=== PATIENT | male | born 1960 | race Caucasian/White ===

== ENCOUNTER 2016-11-19 06:06 | Emergency (ER) | payer OTHER ==
[2016-11-19] MEDS ORDERED: DIPHENHYDRAMINE HCL 50 MG/ML VIAL IV ONE (07:54)
[2016-11-19] MEDS ORDERED: NORMAL SALINE 1000 ML 1,000 ML IV ONE (07:54)
[2016-11-19] MEDS ORDERED: KETOROLAC TROMETHAMINE INJ/PF 30 MG/1 ML SDV IV ONE (07:54)
--- NOTE | 2016-11-19 07:55 | ER Document Report ---
ED GI/ - General Chief Complaint: Flank Pain Stated Complaint: FLANK PAIN Time Seen by Provider: 11/19/16 07:35 Mode of Arrival: Ambulatory Information source: Patient Notes: Pt is a 56 year old male who presents to the ER today for possible kidney stone. Pt has a history of stones and states that he has been having right sided flank pain radiating around to the right abdomen with hematuria. He states he started to feel some pain 2 days ago, but it worsened today. He has a urologist in town that he goes to and states he can get an appointment easily. TRAVEL OUTSIDE OF THE [place] IN LAST 30 DAYS: No - Related Data Allergies/Adverse Reactions: No Known Allergies Allergy (Verified 09/11/14 09:40) Past Medical History - General Information source: Patient - Social History Smoking Status: Unknown if Ever Smoked Family History: Reviewed & Not Pertinent, DM Patient has suicidal ideation: No Patient has homicidal ideation: No Renal/ Medical History: Reports: Hx Kidney Stones. Denies: Hx Peritoneal Dialysis Review of Systems - Review of Systems Constitutional: No symptoms reported EENT: No symptoms reported Cardiovascular: No symptoms reported Respiratory: No symptoms reported Gastrointestinal: No symptoms reported Genitourinary: See HPI Male Genitourinary: No symptoms reported Musculoskeletal: No symptoms reported Skin: No symptoms reported Hematologic/Lymphatic: No symptoms reported Neurological/Psychological: No symptoms reported Physical Exam - Vital signs Vitals: Temp Pulse Resp BP Pulse Ox 97.4 F 60 18 136/74 H 100 11/19/16 06:28 11/19/16 06:28 11/19/16 06:28 11/19/16 06:28 11/19/16 06:28 - Notes Notes: PHYSICAL EXAMINATION: GENERAL: Uncomfortable appearing, but in no acute distress. HEAD: Atraumatic, normocephalic. EYES: Pupils equal round and reactive to light, extraocular movements intact, sclera anicteric, conjunctiva are normal. NECK: Normal range of motion, supple without lymphadenopathy LUNGS: CTAB and equal. No wheezes rales or rhonchi. HEART: Regular rate and rhythm without murmurs ABDOMEN: Soft, no tenderness. No guarding, no rebound BACK: no vertebral tenderness, normal ROM GI/: right CVA tenderness EXTREMITIES: Normal range of motion, no pitting edema. No cyanosis. NEUROLOGICAL: Cranial nerves grossly intact. Normal sensory/motor exams. PSYCH: Normal mood, normal affect. SKIN: Warm, Dry, normal turgor, no rashes or lesions noted Course - Re-evaluation Re-evalutation: 11/19/16 15:17 Pt has a 12mm stone in the right ureter at the level of the UVJ, he is having no difficulty urinating, I did offer to transfer him for urology as we have no one exceptional children's teacher for urology here, but he states he can get in easily with his urologist and would like to go home with medicine and call today to get in with them. I agree with this plan and advise him that if he can't, he should come back as he likely will not pass this stone on his own. - Vital Signs Vital signs: Temp Pulse Resp BP Pulse Ox 98.6 F 51 L 18 131/76 H 100 11/19/16 10:38 11/19/16 10:38 11/19/16 10:38 11/19/16 10:38 11/19/16 10:38 - Laboratory Result Diagrams: 11/19/16 08:07 11/19/16 08:07 Laboratory results interpreted by me: 11/19/16 08:38 Urine Blood LARGE H Ur Leukocyte Esterase TRACE H Discharge - Discharge Clinical Impression: Ureteral stone Condition: Stable Disposition: HOME, SELF-CARE Additional Instructions: Return immediately for any new or worsening symptoms. Follow up with urologist, call tomorrow to make followup appointment. Prescriptions: Ondansetron [Zofran Odt 4 mg Tablet] 4 mg PO Q4HP PRN #30 tab.rapdis PRN Reason: Ketorolac Tromethamine [Toradol 10 mg Tablet] 10 mg PO Q6HP PRN #30 tablet PRN Reason: Ciprofloxacin HCl [Cipro 500 mg Tablet] 500 mg PO BID #20 tablet Oxycodone HCl/Acetaminophen [Percocet 5-325 mg Tablet] 1 tab PO Q4 #20 tab Tamsulosin HCl [Flomax 0.4 mg Cap.sr] 0.4 mg PO DAILY #20 cap.sr.24h
[2016-11-19 08:20] LABS: ABSOLUTE BASOPHILS # (AUTO) 0.1 10^3/uL (0.0-0.2); ABSOLUTE EOSINOPHILS # (AUTO) 0.3 10^3/uL (0.0-0.6); ABSOLUTE LYMPHOCYTES (AUTO) 2.5 10^3/uL (0.5-4.7); ABSOLUTE MONOCYTES (AUTO) 0.8 10^3/uL (0.1-1.4); ABSOLUTE NEUT (AUTO) 6.7 10^3/uL (1.7-8.2); BASOPHILS % (AUTO) 0.6 % (0-2); EOSINOPHILS % (AUTO) 3.1 % (0-6); HEMATOCRIT 46.4 % (37.9-51.0); HEMOGLOBIN 15.5 g/dL (13.5-17.0); HGB HCT DIFFERENCE 0.1; MEAN CORPUSCULAR HGB CONC 33.4 g/dL (32.0-36.0); MEAN CORPUSCULAR VOLUME 93 fl (80-97); MONOCYTES % (AUTO) 7.8 % (3-13); RED CELL DISTRIBUTION WIDTH 13.9 % (11.5-14.0); SEGMENTED NEUTROPHILS % (AUTO) 64.5 % (42-78); WHITE BLOOD COUNT 10.3 10^3/uL (4.0-10.5)
--- NOTE | 2016-11-19 08:24 | RADIOLOGY REPORT (SQ) ---
EXAM DESCRIPTION: CT LTD RENAL STONE PROTOCOL ON COMPLETED DATE/TIME: 11/19/2016 8:03 am REASON FOR STUDY: flank pain COMPARISON: 02/22/2016 TECHNIQUE: CT scan of the abdomen and pelvis performed without intravenous or oral contrast. Images reviewed with lung, soft tissue, and bone windows. Reconstructed coronal and sagittal MPR images revi ewed. All images stored on PACS. All CT scanners at this facility use dose modulation, iterative reconstruction, and/or weight based d osing when appropriate to reduce radiation dose to as low as reasonably achievable (ALARA). [facility]: Dose Right [facility]: CareDose [facility]: Dose Right [facility]: Teradose 4D [facility]: Smart DCMobility RADIATION DOSE: Up-to-date CT equipment and radiation dose reduction techniques were employed. CTDIv ol: 5.0 mGy. DLP: 250 mGy-cm.mGy. LIMITATIONS: None. FINDINGS: LOWER CHEST: No significant findings. No nodules or infiltrates. NON-CONTRASTED LIVER, SPLEEN, ADRENALS: Evaluation limited by lack of IV contrast. No identified sign ificant masses. PANCREAS: No masses. No peripancreatic inflammatory changes. GALLBLADDER: No identified stones by CT criteria. No inflammatory changes to suggest cholecystitis. RIGHT KIDNEY AND URETER: No suspicious masses. Assessment limited by lack of IV contrast. Multiple small nonobstructing stones in the kidney largest measuring 6 mm. 12 by 7 mm right UPJ stone with m ild obstructive changes. Stone measures 1,100 Hounsfield units. LEFT KIDNEY AND URETER: No suspicious masses. Assessment limited by lack of IV contrast. Multiple n onobstructing stones in the kidneys largest measuring 7 mm. No hydronephrosis or hydroureter. AORTA AND RETROPERITONEUM: No aneurysm. No retroperitoneal masses or adenopathy. BOWEL AND PERITONEAL CAVITY: No obvious masses or inflammatory changes. No free fluid. APPENDIX: Normal. PELVIS, BLADDER, AND ABDOMINAL WALL:No abnormal masses. No free fluid. Bladder normal. Prostate is m ildly enlarged and prostatic calcifications are seen. BONES: No significant findings. OTHER: No other significant finding. IMPRESSION: 1. 12 mm right UPJ stone with mild obstructive changes. 2. Bilateral nephrolithiasis. TECHNICAL DOCUMENTATION: JOB ID: [id number] Quality ID # [id number]: Final reports with documentation of one or more dose reduction techniques (e.g., Au tomated exposure control, adjustment of the mA and/or kV according to patient size, use of iterative reconstruction technique) 2010 [employer]- All Rights Reserved
[2016-11-19] MEDS ORDERED: TAMSULOSIN HCL 0.4 MG CAP.SR.24H PO ONE (08:33)
[2016-11-19 08:36] LABS: ANION GAP 10 (5-19); BLOOD UREA NITROGEN 18 mg/dL (7-20); CALCIUM 9.5 mg/dL (8.4-10.2); CARBON DIOXIDE 26 mmol/L (22-30); CHLORIDE 106 mmol/L (98-107); CREATININE RESULT 0.85 mg/dL (0.52-1.25); GLUCOSE 90 mg/dL (75-110); POTASSIUM 4.6 mmol/L (3.6-5.0); SODIUM 142.2 mmol/L (137-145)
[2016-11-19 08:51] LABS: APPEARANCE,URINE SLIGHTLY-CLOUDY; BILIRUBIN,URINE NEGATIVE (NEGATIVE); GLUCOSE, URINE NEGATIVE (NEGATIVE); KETONES,URINE NEGATIVE (NEGATIVE); LEUKOCYTE ESTERASE,URINE TRACE (NEGATIVE); NITRITE,URINE NEGATIVE (NEGATIVE); PROTEIN,URINE NEGATIVE (NEGATIVE); URINE SPECIFIC GRAVITY 1.011; UROBILINOGEN,URINE NEGATIVE mg/dL (<2.0)
[2016-11-19 10:46] VITALS: BP 131/76
== END 2016-11-19 10:38 | disposition home or self-care (01) ==
LOC: ER 06:06
DX: N20.1 Calculus of ureter (principal); R10.9 Unspecified abdominal pain; Z87.442 Personal history of urinary calculi
CPT/HCPCS: 99284; 96361; 96374; 96375; 36415; 85025; 80048; 81001; 76380; J1200; J1885; J7030

== ENCOUNTER 2016-12-15 04:53 | Emergency (ER) | payer OTHER ==
[2016-12-15 05:22] LABS: ABSOLUTE BASOPHILS # (AUTO) 0.1 10^3/uL (0.0-0.2); ABSOLUTE EOSINOPHILS # (AUTO) 0.4 10^3/uL (0.0-0.6); ABSOLUTE LYMPHOCYTES (AUTO) 2.4 10^3/uL (0.5-4.7); ABSOLUTE MONOCYTES (AUTO) 0.7 10^3/uL (0.1-1.4); ABSOLUTE NEUT (AUTO) 7.1 10^3/uL (1.7-8.2); BASOPHILS % (AUTO) 0.6 % (0-2); EOSINOPHILS % (AUTO) 3.5 % (0-6); HEMATOCRIT 43.5 % (37.9-51.0); HEMOGLOBIN 14.9 g/dL (13.5-17.0); HGB HCT DIFFERENCE 1.2; LYMPHOCYTES % (AUTO) 22.4 % (13-45); MEAN CORPUSCULAR HEMOGLOBIN 31.7 pg (27.0-33.4); MEAN CORPUSCULAR HGB CONC 34.3 g/dL (32.0-36.0); MEAN CORPUSCULAR VOLUME 92 fl (80-97); MONOCYTES % (AUTO) 6.8 % (3-13); RED BLOOD COUNT 4.71 10^6/uL (4.35-5.55); RED CELL DISTRIBUTION WIDTH 13.6 % (11.5-14.0); SEGMENTED NEUTROPHILS % (AUTO) 66.7 % (42-78); WHITE BLOOD COUNT 10.6 10^3/uL (4.0-10.5)
[2016-12-15 05:34] LABS: ALANINE AMINOTRANSFERASE 24 U/L (21-72); ALBUMIN 4.1 g/dL (3.5-5.0); ALKALINE PHOSPHATASE 93 U/L (38-126); ANION GAP 12 (5-19); ASPARTATE AMINO TRANSFERASE 16 U/L (17-59); BILIRUBIN,DIRECT 0.4 mg/dL (0.0-0.4); BILIRUBIN,TOTAL 0.5 mg/dL (0.2-1.3); BLOOD UREA NITROGEN 17 mg/dL (7-20); CALCIUM 9.8 mg/dL (8.4-10.2); CARBON DIOXIDE 24 mmol/L (22-30); CHLORIDE 108 mmol/L (98-107); CREATININE RESULT 0.92 mg/dL (0.52-1.25); GLUCOSE 139 mg/dL (75-110); SODIUM 143.6 mmol/L (137-145); TOTAL PROTEIN 6.9 g/dL (6.3-8.2)
--- NOTE | 2016-12-15 05:34 | RADIOLOGY REPORT (SQ) ---
EXAM DESCRIPTION: ACUTE ABDOMEN SERIES COMPLETED DATE/TIME: 12/15/2016 5:23 am REASON FOR STUDY: abd pain, no BM in 6 days COMPARISON: CT renal system, 11/19/2016. NUMBER OF VIEWS: Three views. 4 images. TECHNIQUE: Frontal chest, supine abdomen and upright/decubitus abdomen radiographic images acquired. LIMITATIONS: None. FINDINGS: CHEST: Mild interstitial markings. Moderate hyperinflation. FREE AIR: None. No abnormal gas collections. BOWEL GAS PATTERN: Nonobstructive pattern. No dilated loops or air fluid levels. CALCIFICATIONS: Left nephrolithiasis measures up to 0.3 cm each. HARDWARE: Right ureteral stent. SOFT TISSUES: No gross mass or suggestion of organomegaly. BONES: No acute fracture. No worrisome bone lesions. OTHER: No other significant finding. IMPRESSION: No acute findings. Left nephrolithiasis. Right ureteral stent. TECHNICAL DOCUMENTATION: JOB ID: [id number] [employer]- All Rights Reserved
[2016-12-15] MEDS ORDERED: KETOROLAC TROMETHAMINE INJ/PF 30 MG/1 ML SDV IV ONE (06:05)
[2016-12-15] MEDS ORDERED: NORMAL SALINE 1000 ML 1,000 ML IV ONE (06:05)
[2016-12-15] MEDS ORDERED: HYDROMORPHONE HCL INJ/PF 2 MG/ML AMPULE IV ONE (06:06)
[2016-12-15] MEDS ORDERED: METOCLOPRAMIDE HCL INJ/PF 10 MG/2 ML SDV IV ONE (06:08)
--- NOTE | 2016-12-15 06:08 | ER Document Report ---
ED General - General Chief Complaint: Abdominal Pain Stated Complaint: ABDOMINAL PAIN Time Seen by Provider: 12/15/16 06:03 TRAVEL OUTSIDE OF THE [place] IN LAST 30 DAYS: No - HPI Patient complains to provider of: Left lower back pain. 10/10 sharp in nature with radiation to his LLQ Severity: Severe Notes: Patient has recent kidney stones has a stent in the left ureter. In the wire in place. Contacted urology recommended evaluation emergency department for profound pain. Patient also endorses some hematuria. Denies fever, chills.. Currently profoundly nauseous with multiple episodes of emesis - Related Data Allergies/Adverse Reactions: No Known Allergies Allergy (Verified 09/11/14 09:40) Past Medical History - Social History Smoking Status: Unknown if Ever Smoked Family History: Reviewed & Not Pertinent, DM Renal/ Medical History: Reports: Hx Kidney Stones. Denies: Hx Peritoneal Dialysis GI Medical History: Reports: Hx Gastroesophageal Reflux Disease Past Surgical History: Reports: Hx Kidney (Renal Surgery) - stent placement - Immunizations Hx Diphtheria, Pertussis, Tetanus Vaccination: Yes Physical Exam - Vital signs Vitals: Temp Pulse Resp BP Pulse Ox 97.6 F 61 19 140/93 H 100 12/15/16 05:19 12/15/16 05:19 12/15/16 05:19 12/15/16 05:19 12/15/16 05:19 Course - Vital Signs Vital signs: Temp Pulse Resp BP Pulse Ox 97.6 F 61 19 140/93 H 100 12/15/16 05:19 12/15/16 05:19 12/15/16 05:19 12/15/16 05:19 12/15/16 05:19 - Laboratory Result Diagrams: 12/15/16 05:05 12/15/16 05:05 Laboratory results interpreted by me: 12/15/16 12/15/16 05:05 05:05 WBC 10.6 H Chloride 108 H Glucose 139 H AST 16 L
--- NOTE | 2016-12-15 06:10 | ER Document Report ---
ED General - General Chief Complaint: Abdominal Pain Stated Complaint: ABDOMINAL PAIN Time Seen by Provider: 12/15/16 06:03 TRAVEL OUTSIDE OF THE [place] IN LAST 30 DAYS: No - HPI Patient complains to provider of: Left lower back pain Onset: This morning Onset/Duration: Gradual Severity: Severe Pain Level: 5 Notes: Fortunately man presents with 10/10 left lower back pain with radiation to his left lower anterior quadrant. Pain is been getting worse and worse. Patient has history of recent kidney surgery and left ureter stent placed. Patient says the pain was worse. Patient has profound nausea and emesis. His pain has been going on for approximately 6 hours - Related Data Allergies/Adverse Reactions: No Known Allergies Allergy (Verified 09/11/14 09:40) Past Medical History - Social History Smoking Status: Unknown if Ever Smoked Family History: Reviewed & Not Pertinent, DM Renal/ Medical History: Reports: Hx Kidney Stones. Denies: Hx Peritoneal Dialysis GI Medical History: Reports: Hx Gastroesophageal Reflux Disease Past Surgical History: Reports: Hx Kidney (Renal Surgery) - stent placement - Immunizations Hx Diphtheria, Pertussis, Tetanus Vaccination: Yes Review of Systems - Review of Systems Constitutional: No symptoms reported EENT: No symptoms reported Cardiovascular: No symptoms reported Respiratory: No symptoms reported Gastrointestinal: No symptoms reported Genitourinary: No symptoms reported Male Genitourinary: No symptoms reported Musculoskeletal: Back pain Skin: No symptoms reported Hematologic/Lymphatic: No symptoms reported Neurological/Psychological: No symptoms reported Physical Exam - Vital signs Vitals: Temp Pulse Resp BP Pulse Ox 97.6 F 61 19 140/93 H 100 12/15/16 05:19 12/15/16 05:19 12/15/16 05:19 12/15/16 05:19 12/15/16 05:19 Interpretation: Normal - General General appearance: Appears well, Alert In distress: Moderate - HEENT Head: Normocephalic, Atraumatic Eyes: Normal Pupils: PERRL - Respiratory Respiratory status: No respiratory distress Chest status: Nontender Breath sounds: Normal Chest palpation: Normal - Cardiovascular Rhythm: Regular Heart sounds: Normal auscultation Murmur: No - Abdominal Inspection: Normal Distension: No distension Bowel sounds: Normal Tenderness: Nontender Organomegaly: No organomegaly - Back Back: Normal, Nontender - Extremities General upper extremity: Normal inspection, Nontender, Normal color, Normal ROM , Normal temperature General lower extremity: Normal inspection, Nontender, Normal color, Normal ROM , Normal temperature, Normal weight bearing. No: Kiya's sign - Neurological Neuro grossly intact: Yes Cognition: Normal Orientation: AAOx4 Maria Coma Scale Eye Opening: Spontaneous [place] Coma Scale Verbal: Oriented [place] Coma Scale Motor: Obeys Commands [place] Coma Scale Total: 15 Speech: Normal Motor strength normal: LUE, RUE, LLE, RLE Sensory: Normal - Psychological Associated symptoms: Normal affect, Normal mood - Skin Skin Temperature: Warm Skin Moisture: Dry Skin Color: Normal Course - Re-evaluation Re-evalutation: 12/15/16 08:22 Patient presents in severe discomfort not sure if it is from chronic constipation or the indwelling left-sided ureteral stent. Patient extensive lab workup relatively unremarkable. Patient has IV established given a load of IV pain medication and oral hydration as well as IV hydration. Antiemetics. Patient also given oral MiraLAX and mag citrate. Patient is a large bowel movement. Given the interventions performed here in large bowel movement patient pain-free. Patient would like to be discharged home with follow-up with his urologist. - Vital Signs Vital signs: Temp Pulse Resp BP Pulse Ox 97.6 F 61 19 140/93 H 100 12/15/16 05:19 12/15/16 05:19 12/15/16 05:19 12/15/16 05:19 12/15/16 05:19 - Laboratory Result Diagrams: 12/15/16 05:05 12/15/16 05:05 Laboratory results interpreted by me: 12/15/16 12/15/16 12/15/16 05:05 05:05 07:19 WBC 10.6 H Chloride 108 H Glucose 139 H AST 16 L Urine Protein 100 H Urine Blood LARGE H Ur Leukocyte Esterase MODERATE H Discharge - Discharge Clinical Impression: Renal colic on left side Constipation Qualifiers: Constipation type: drug induced constipation Qualified Code(s): K59.03 - Drug induced constipation Condition: Stable Disposition: HOME, SELF-CARE Instructions: Oral Narcotic Medication ([facility]), Bulk Laxatives Additional Instructions: f/u with your urologist
--- NOTE | 2016-12-15 07:30 | RADIOLOGY REPORT (SQ) ---
EXAM DESCRIPTION: CT ABD/PELVIS WITH IV ONLY COMPLETED DATE/TIME: 12/15/2016 7:12 am REASON FOR STUDY: abdominal pain COMPARISON: 11/19/2016. CR, 12/15/2016. TECHNIQUE: CT scan of the abdomen and pelvis performed using helical scanning technique with dynamic intravenous contrast injection. No oral contrast. Images reviewed with lung, soft tissue, and bone windows. Reconstructed coronal and sagittal MPR images reviewed. Delayed images for evaluation of the urinary system also acquired. All images stored on PACS. All CT scanners at this facility use dose modulation, iterative reconstruction, and/or weight based d osing when appropriate to reduce radiation dose to as low as reasonably achievable (ALARA). [facility]: Dose Right [facility]: CareDose [facility]: Dose Right [facility]: Teradose 4D [facility]: PowerPractical CONTRAST TYPE AND DOSE: 83.3 CC Isovue 370- low osmolar. RENAL FUNCTION: Creatinine 0.9. RADIATION DOSE: Up-to-date CT equipment and radiation dose reduction techniques were employed. CTDIv ol: 5.6 - 7.2 mGy. DLP: 622 mGy-cm.. LIMITATIONS: None. FINDINGS: LOWER CHEST: No significant findings. No nodules or infiltrates. LIVER: Normal size. No masses. No dilated ducts. Subcentimeter low-attenuation, likely benign left hepatic lesion probably due to cyst or hemangioma. SPLEEN: Normal size. No focal lesions. PANCREAS: No masses. No significant calcifications. No adjacent inflammation or peripancreatic fluid collections. Pancreatic duct not dilated. GALLBLADDER: No identified stones by CT criteria. No inflammatory changes to suggest cholecystitis. ADRENAL GLANDS: No significant masses or asymmetry. RIGHT KIDNEY AND URETER: Right ureteral stent. 0.5 cm stone. No significant hydronephrosis or hydro ureter. subcentimeter likely benign cysts. LEFT KIDNEY AND URETER: Or small nephrolithiasis measuring up to 0.3 cm without complication. AORTA AND VESSELS: No aneurysm. No dissection. Renal arteries, SMA, celiac without stenosis. RETROPERITONEUM: No retroperitoneal adenopathy, hemorrhage or masses. BOWEL AND PERITONEAL CAVITY: No masses or inflammatory changes. No free fluid or peritoneal masses. APPENDIX: No evidence of appendicitis. Possible minimal appendicolith. PELVIS: No mass. No free fluid. Normal bladder. ABDOMINAL WALL: No masses. No hernias. BONES: Mild L5-S1 and lower thoracic disc desiccation. Small fragmented anterior L 3-4 bridging oste ophyte. OTHER: No other significant finding. IMPRESSION: No acute findings. Right ureteral stent. Small bilateral nephrolithiasis. TECHNICAL DOCUMENTATION: JOB ID: [id number] Quality ID # [id number]: Final reports with documentation of one or more dose reduction techniques (e.g., Au tomated exposure control, adjustment of the mA and/or kV according to patient size, use of iterative reconstruction technique) 2010 [employer]- All Rights Reserved
[2016-12-15] MEDS ORDERED: MAGNESIUM CITRATE 296 ML BOTTLE PO ONE (07:39)
[2016-12-15] MEDS ORDERED: POLYETHYLENE GLYCOL 3350 POWDER 17 GM/1 PACKET PO ONE (07:39)
[2016-12-15 07:42] LABS: APPEARANCE,URINE SLIGHTLY-CLOUDY; BILIRUBIN,URINE NEGATIVE (NEGATIVE); GLUCOSE, URINE NEGATIVE (NEGATIVE); KETONES,URINE NEGATIVE (NEGATIVE); LEUKOCYTE ESTERASE,URINE MODERATE (NEGATIVE); NITRITE,URINE NEGATIVE (NEGATIVE); PROTEIN,URINE 100 mg/dL (NEGATIVE); URINE SPECIFIC GRAVITY 1.023; UROBILINOGEN,URINE NEGATIVE mg/dL (<2.0)
[2016-12-15 08:42] VITALS: BP 127/89
== END 2016-12-15 08:42 | disposition home or self-care (01) ==
LOC: ER 04:53
DX: N23 Unspecified renal colic (principal); K59.03 Drug induced constipation; M54.5 Low back pain; R11.2 Nausea with vomiting, unspecified; K21.9 Gastro-esophageal reflux disease without esophagitis; Z87.442 Personal history of urinary calculi
CPT/HCPCS: 96361; 99285; 96374; 96375; 36415; 83690; 85025; 80053; 81001; 74022; 74177; J3490 ×2; J1885; J2765; J1170; J7030

== ENCOUNTER 2018-01-02 14:08 | Emergency (ER) | payer OTHER ==
[2018-01-02 14:14] VITALS: BP 129/80
[2018-01-02] MEDS ORDERED: PENICILLIN V POTASSIUM 500 MG TABLET PO ONE (15:04)
--- NOTE | 2018-01-02 15:08 | ER Document Report ---
ED Oral Problem - General Chief Complaint: Toothache Stated Complaint: TOOTH PAIN Time Seen by Provider: 01/02/18 14:53 Mode of Arrival: Ambulatory Information source: Patient Notes: 57-year-old male presented ED for complaint of dental pain to the right upper jaw. Tooth #3 has a cavity with mild swelling around the tooth. There is no dental abscess noted. Patient has no signs or symptoms of fluid mixing angina. Patient is alert and oriented respirations regular and unlabored speaking in full sentences and walks with a even steady gait. TRAVEL OUTSIDE OF THE [place] IN LAST 30 DAYS: No - HPI Patient complains to provider of: Toothache Onset: Other - His pain started Saturday Onset: Gradual Quality of pain: Achy Severity: Moderate Pain Level: 3 Associated symptoms: Toothache Worsened by: Cold Similar symptoms previously: Yes Recently seen / treated by doctor/dentist: No - Related Data Allergies/Adverse Reactions: No Known Allergies Allergy (Verified 01/02/18 14:10) Past Medical History - General Information source: Patient - Social History Smoking Status: Current Every Day Smoker Cigarette use (# per day): Yes - ppd Chew tobacco use (# tins/day): No Smoking Education Provided: Yes - 4 min Frequency of alcohol use: None Drug Abuse: None Lives with: Alone Family History: Reviewed & Not Pertinent, DM Patient has suicidal ideation: No Patient has homicidal ideation: No - Past Medical History Cardiac Medical History: Reports: None Pulmonary Medical History: Reports: None EENT Medical History: Reports: None Neurological Medical History: Reports: None Endocrine Medical History: Reports: None Renal/ Medical History: Reports: Hx Kidney Stones Malignancy Medical History: Reports None GI Medical History: Reports: Hx Gastroesophageal Reflux Disease Musculoskeletal Medical History: Reports None Skin Medical History: Reports None Psychiatric Medical History: Reports: None Traumatic Medical History: Reports: None Infectious Medical History: Reports: None Past Surgical History: Reports: Hx Kidney (Renal Surgery) - stent placement - Immunizations Immunizations up to date: Yes Hx Diphtheria, Pertussis, Tetanus Vaccination: Yes Review of Systems - Review of Systems Constitutional: No symptoms reported EENT: Mouth swelling, Dental problem Cardiovascular: No symptoms reported Respiratory: No symptoms reported Gastrointestinal: No symptoms reported Genitourinary: No symptoms reported Male Genitourinary: No symptoms reported Musculoskeletal: No symptoms reported Skin: No symptoms reported Hematologic/Lymphatic: No symptoms reported Neurological/Psychological: No symptoms reported -: Yes All other systems reviewed and negative Physical Exam - Vital signs Vitals: Temp Pulse Resp BP Pulse Ox 98.5 F 64 18 129/80 H 98 01/02/18 14:13 01/02/18 14:13 01/02/18 14:13 01/02/18 14:13 01/02/18 14:13 Interpretation: Normal - General General appearance: Appears well, Alert - HEENT Head: Normocephalic, Atraumatic Eyes: Normal Pupils: PERRL Ears: Normal External canal: Normal Tympanic membrane: Normal Sinus: Normal Nasal: Normal Mouth/Lips: Normal Mucous membranes: Normal Teeth diagram: 1 - Dental pain with minimal swelling around the tooth, no signs or symptoms of Jose G angina. No swelling to the face. No enlarged lymph nodes. Pharynx: Normal Neck: Normal - Respiratory Respiratory status: No respiratory distress Chest status: Nontender Breath sounds: Normal Chest palpation: Normal - Cardiovascular Rhythm: Regular Heart sounds: Normal auscultation Murmur: No - Abdominal Inspection: Normal Distension: No distension Bowel sounds: Normal Tenderness: Nontender Organomegaly: No organomegaly - Back Back: Normal, Nontender - Extremities General upper extremity: Normal inspection, Nontender, Normal color, Normal ROM , Normal temperature General lower extremity: Normal inspection, Nontender, Normal color, Normal ROM , Normal temperature, Normal weight bearing. No: Kiya's sign - Neurological Neuro grossly intact: Yes Cognition: Normal Orientation: AAOx4 [place] Coma Scale Eye Opening: Spontaneous Maria Coma Scale Verbal: Oriented Maria Coma Scale Motor: Obeys Commands Maria Coma Scale Total: 15 Speech: Normal Motor strength normal: LUE, RUE, LLE, RLE Sensory: Normal - Psychological Associated symptoms: Normal affect, Normal mood - Skin Skin Temperature: Warm Skin Moisture: Dry Skin Color: Normal Course - Re-evaluation Re-evalutation: 01/02/18 15:20 Patient was treated with Penicillin VK. He stated he did not want any kind of pain medicine. He denied need for Tylenol and Motrin. States he has those at home. Presentation is most consistent with likely an infected tooth. Airway is patent. Vitals within normal limits. Patient is able swallow without any difficulty. There is no significant facial swelling. No evidence of Jose G angina, apical abscess, or airway obstruction. Patient will be started on antibiotics. I've instructed to follow-up with dentistry as earliest ability for definitive management. At this time will discharge with return precautions and follow-up recommendations. Verbal discharge instructions given a the bedside and opportunity for questions given. Medication warnings reviewed. Patient is in agreement with this plan and has verbalized understanding of return precautions and the need for primary care follow-up in the next 24-72 hours. - Vital Signs Vital signs: Temp Pulse Resp BP Pulse Ox 98.5 F 64 18 129/80 H 98 01/02/18 14:13 01/02/18 14:13 01/02/18 14:13 01/02/18 14:13 01/02/18 14:13 Discharge - Discharge Clinical Impression: Pain due to dental caries Condition: Stable Disposition: HOME, SELF-CARE Additional Instructions: TOOTHACHE: Your pain is due to dental decay. The tooth must be repaired in order for you to feel better. You will, therefore, be referred to a dentist. We do not have dentists on the staff at [facility]. Severe swelling or drainage around a tooth usually means a dental abscess. This also requires evaluation and treatment by the dentist, but antibiotics may be prescribed while awaiting dental treatment. You should be rechecked immediately if you develop major swelling of the face, increasing pain, a lump in the jaw or gums, headache, difficulty swallowing, or fever. PENICILLIN V K: You have been given a prescription for Penicillin VK. Your physician has determined that this is the best antibiotic for your condition. Pen VK can be taken with meals, however more of the antibiotic gets into the bloodstream if it's taken on an empty stomach. Penicillin usually has no side effects. However, allergy to penicillins is common. If you have had an allergic reaction to any drug of the penicillin family, you should never take any other penicillin. Notify your doctor at once if you develop hives, itching, swelling, faintness, or shortness of breath. FOLLOW-UP CARE: You have been referred for follow-up care to the dentists listed below. Call the dentists office for an appointment as you were instructed or within the next two days. If you experience worsening or a significant change in your symptoms, notify the physician immediately or return to the Emergency Department at any time for re-evaluation. [facility] [address] [place], [place] [facility] [address] [place] [address] [facility] [address] [facility] [address] [place] [facility] [address] [email or web address] [address] [place] [address] Saturday- 8:00am to 5:00 pm Will see patients from other [facility]. Charges based on income and family size and accepts Medicare, Medicaid, and Insurances Will pull molars [facility] [address] Hours of Operation 8:00 am - 4:30 pm weekdays The following dental offices accept Medicaid: [facility] Dr. Da Silva Dr. Jean Dr. Mancuso Dr. Han Mansoor Mendes L[place], and [facility] Dr. Sanchez ([place]) Dr. Catalan ([place]) [facility] Drs. Pavon and Nathaniel ([place]) Dr. Ferrell ([place]) [facility] Dr. Wilson ([place]) Drs. Cardenas and ([place]) Medicaid Care Line Prescriptions: Penicillin V Potassium [Penicillin Vk 500 mg Tablet] 500 mg PO BID #20 tablet Forms: Elevated Blood Pressure, Smoking Cessation Education, Return to Work
== END 2018-01-02 15:28 | disposition home or self-care (01) ==
LOC: ER 14:08
DX: K02.9 Dental caries, unspecified (principal); K08.89 Other specified disorders of teeth and supporting structures; F17.210 Nicotine dependence, cigarettes, uncomplicated; Z71.6 Tobacco abuse counseling
CPT/HCPCS: 99282; 99406

== ENCOUNTER 2018-01-09 10:09 | Emergency (ER) | payer OTHER ==
[2018-01-09 10:17] VITALS: BP 137/82
[2018-01-09] MEDS ORDERED: DEXAMETHASONE SOD PHOS INJ 10 MG/1 ML VIAL IM ONE (10:59)
[2018-01-09] MEDS ORDERED: FAMOTIDINE 20 MG TABLET PO ONE (10:59)
[2018-01-09] MEDS ORDERED: KETOROLAC TROMETHAMINE INJ/PF 30 MG/1 ML SDV IM ONE (10:59)
--- NOTE | 2018-01-09 11:05 | ER Document Report ---
ED Allergic Reaction - General Chief Complaint: Allergic Reaction Stated Complaint: POSSIBLE ALLERGIC REACTION Time Seen by Provider: 01/09/18 10:59 Mode of Arrival: Ambulatory Information source: Patient Notes: 57-year-old male presents to ED for complaint of pain and swelling to the right hand going up the arm almost past the elbow. He states he got stung by 4 or 5 wasp yesterday and the swelling has steadily gone up his arm. Patient states he has never had this kind of a reaction to bee stings before. 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 Patient is alert and oriented respirations regular and unlabored no complaint of shortness of breath. TRAVEL OUTSIDE OF THE [place] IN LAST 30 DAYS: No - HPI Onset: Yesterday Onset/Duration: Gradual, Worse Quality of pain: Burning, Pressure Severity: Mild Pain Level: 1 Identified cause: Yes Skin rash / itching: Extremities - Right hand and arm, "Redness" Swelling: Hands - Hand and arm Associated symptoms: None Similar symptoms previously: No Recently seen / treated by doctor: No - Related Data Allergies/Adverse Reactions: No Known Allergies Allergy (Verified 01/09/18 10:10) Past Medical History - General Information source: Patient - Social History Smoking Status: Current Every Day Smoker Cigarette use (# per day): Yes - 17 a day Chew tobacco use (# tins/day): No Smoking Education Provided: Yes - 4 minutes Frequency of alcohol use: None Drug Abuse: None Occupation: Coding File Clerk Lives with: Family Family History: Reviewed & Not Pertinent, DM Patient has suicidal ideation: No Patient has homicidal ideation: No Pulmonary Medical History: Reports: None EENT Medical History: Reports: None Endocrine Medical History: Reports: None Renal/ Medical History: Reports: Hx Kidney Stones Malignancy Medical History: Reports None GI Medical History: Reports: Hx Gastroesophageal Reflux Disease Musculoskeletal Medical History: Reports None Skin Medical History: Reports None Psychiatric Medical History: Reports: None Traumatic Medical History: Reports: None Infectious Medical History: Reports: None Past Surgical History: Reports: Hx Kidney (Renal Surgery) - stent placement - Immunizations Immunizations up to date: Yes Hx Diphtheria, Pertussis, Tetanus Vaccination: Yes Review of Systems - Review of Systems Constitutional: No symptoms reported EENT: No symptoms reported Cardiovascular: No symptoms reported Respiratory: No symptoms reported Gastrointestinal: No symptoms reported Genitourinary: No symptoms reported Male Genitourinary: No symptoms reported Musculoskeletal: No symptoms reported Skin: Change in color - Red and swelling up to the elbow Hematologic/Lymphatic: No symptoms reported Neurological/Psychological: No symptoms reported -: Yes All other systems reviewed and negative Physical Exam - Vital signs Vitals: Temp Pulse Resp BP Pulse Ox 97.5 F 63 16 137/82 H 100 01/09/18 10:16 01/09/18 10:16 01/09/18 10:16 01/09/18 10:16 01/09/18 10:16 Interpretation: Normal - General General appearance: Appears well, Alert - HEENT Head: Normocephalic, Atraumatic Eyes: Normal Pupils: PERRL - Respiratory Respiratory status: No respiratory distress Chest status: Nontender Breath sounds: Normal Chest palpation: Normal - Cardiovascular Rhythm: Regular Heart sounds: Normal auscultation Murmur: No - Abdominal Inspection: Normal Distension: No distension Bowel sounds: Normal Tenderness: Nontender Organomegaly: No organomegaly - Back Back: Normal, Nontender - Extremities General upper extremity: Normal inspection, Nontender, Normal color, Normal ROM , Normal temperature General lower extremity: Normal inspection, Nontender, Normal color, Normal ROM , Normal temperature, Normal weight bearing. No: Kiya's sign - Neurological Neuro grossly intact: Yes Cognition: Normal Orientation: AAOx4 [place] Coma Scale Eye Opening: Spontaneous Maria Coma Scale Verbal: Oriented Maria Coma Scale Motor: Obeys Commands Maria Coma Scale Total: 15 Speech: Normal Motor strength normal: LUE, RUE, LLE, RLE Sensory: Normal - Psychological Associated symptoms: Normal affect, Normal mood - Skin Skin Temperature: Warm Skin Moisture: Dry Skin Color: Normal Character of irregularity: Erythematous Irregularity with: Swelling, Tenderness - Due to 4 or 5 bee stings yesterday Course - Re-evaluation Re-evalutation: 01/09/18 11:08 Patient treated with Decadron IM, Toradol IM, and Pepcid p.o. in the emergency room and discharged home with prescription for prednisone and Pepcid. - Vital Signs Vital signs: Temp Pulse Resp BP Pulse Ox 97.5 F 63 16 137/82 H 100 01/09/18 10:16 01/09/18 10:16 01/09/18 10:16 01/09/18 10:16 01/09/18 10:16 Discharge - Discharge Clinical Impression: Wasp sting Qualifiers: Encounter type: initial encounter Injury intent: accidental or unintentional Qualified Code(s): T63.461A - Toxic effect of venom of wasps, accidental ( unintentional), initial encounter Condition: Stable Disposition: HOME, SELF-CARE Instructions: Family Physicians / Practices Additional Instructions: Insect Sting You've been stung by an insect. The venom can cause pain, redness, and swelling. Right after the sting, we sometimes use adrenaline to reduce the reaction to the venom. This also stops any allergic reaction. You should apply cold compresses, rest and elevate the affected part, and take antihistamines. A more severe, itchy red swelling sometimes develops the next day. This is a local allergic reaction to the venom. This local allergy isn't dangerous. We treat it with cortisone-type medicine and antihistamines. Sometimes we use antibiotics if we're worried about infection. If you develop a fever, chills, a red streak, or swollen glands in the area of the bite, infection may be starting. Return at once. Insect stings from the bee and hornet family may cause a severe allergic reaction. Symptoms include hoarseness, shortness of breath, general redness of the skin, general itching, or lightheadedness. If any of these symptoms occur, you'll be treated with adrenalin and cortisone-like steroids. You should carry an "Anaphylaxis Kit" with you in the summer months so you can administer these medications to yourself before getting emergency medical care. STEROID MEDICATION: You have been given a medicine of the cortisone/steroid class. This medication is used to control inflammation or allergy. It is usually only given for a short period of time, until the acute process subsides. There are usually no side effects from short-term use of cortisone-like medications. Some persons feel an increased sense of well-being and are not sleepy at bedtime. Long-term use of cortisone medications is best avoided, unless required for a severe condition. If your condition does not remit, or relapses after the course of corticosteroid medication, you should consult your physician. ACID-SUPPRESSING MEDICATION: You have a prescription for medicine which reduces the stomach's secretion of acid. Examples include Zantac, Tagament, and Pepcid. These drugs are often used to allow healing of ulcers or esophagitis. They may be needed to prevent recurrence of ulcers in some patients, or to prevent damage from acid reflux in the esophagus. Take all medication as prescribed, even after the pain is gone. Regular antacids may be added as needed if you have symptoms while taking this medicine. These medications sometimes are prescribed for allergic reactions because they have anti-histaminic effects and relieve the rash and itching of the reaction. There are usually no side effects from this medication. But, in rare cases and particularly in the elderly, serious problems can occur. Contact your doctor if there is fever, rash, hallucinations, confusion, or unusual bruising. Contact your doctor at once if you develop lightheadedness, black or bloody stool, or bloody vomitus. ANTIHISTAMINES: An antihistamine has been given and/or prescribed to control your symptoms. Antihistamines are used for many reasons, including itching, watering eyes, runny nose, allergic swelling, hives, and insect stings. Antihistamines may cause drowsiness, especially with the first dose. Do not operate machinery or drive while under the effects of the medication. Other common side effects include dry mouth and eyes. In older persons, antihistamines can occasionally cause urinary retention, constipation, and trouble focusing the eyes. Do not combine the medication with alcohol, or with any other medication without talking to your doctor. USE OF DIPHENHYDRAMINE: The use of diphenhydramine (Benadryl) has been recommended to control allergic symptoms. The 25 mg strength is available over- the-counter, as well as the elixir. This antihistamine is used for many symptoms. It's useful for itching, watering eyes and nose, allergic swelling, hives, and insect stings. The medication can be repeated four times daily. Age Elixir (12.5 mg/tsp) 25 mg pill 2-3 yr 1/2 tsp 4-8 yr 1 tsp 9-14 yr 2 tsp one tab adult 1-2 tabs Antihistamines may cause drowsiness, especially with the first dose. Do not operate machinery or drive while under the effects of the medication. Do not combine the medication with alcohol, or with any other medication without talking to your doctor. Ice & Elevation Apply ice packs frequently against the painful area. Many different schedules are recommended, such as "20 minutes on, 20 minutes off" or "one hour ice, two hours rest." If you need to work, you may need to go longer between ice treatments. You should plan to have the area ice packed AT LEAST one- fourth of the time. The ice should be applied over the wrap, tape, or splint, or over a layer of cloth -- not directly against the skin. Some ice bags have a built-in cloth and can be put directly on the skin. Your injured part should be elevated as much as possible over the next 48 hours. Try to keep the injury above the level of the heart. Avoid use of the injured area. Elevation and rest will decrease the swelling. FOLLOW-UP CARE: If you have been referred to a physician for follow-up care, call the physician s office for an appointment as you were instructed or within the next two days. If you experience worsening or a significant change in your symptoms, notify the physician immediately or return to the Emergency Department at any time for re-evaluation. Prescriptions: Famotidine [Pepcid 20 mg Tablet] 20 mg PO BID #12 tablet Prednisone [Deltasone 20 mg Tablet] 2 tab PO DAILY 3 Days tablet Forms: Elevated Blood Pressure, Return to Work
== END 2018-01-09 11:46 | disposition home or self-care (01) ==
LOC: ER 10:09
DX: T63.461A Toxic effect of venom of wasps, accidental (unintentional), initial encounter (principal); F17.210 Nicotine dependence, cigarettes, uncomplicated; Z71.6 Tobacco abuse counseling
CPT/HCPCS: 99406; 99283; 96372; J1885; J1100

== ENCOUNTER 2018-07-31 19:17 | Emergency (ER) | payer OTHER ==
[2018-07-31] MEDS ORDERED: NORMAL SALINE 1000 ML 1,000 ML IV ONE (19:56)
--- NOTE | 2018-07-31 19:56 | ER Document Report ---
ED Medical Screen (RME) - General Chief Complaint: Abdominal Pain Stated Complaint: VOMITING,ABDOMINAL PAIN Time Seen by Provider: 07/31/18 19:54 Notes: Patient is a 57-year-old male presents to the emergency, came by EMS, patient is aggravated, making rude comments, and not wanting to interact with history taking. States that it hurts in his stomach will not say anything else. Patient not cooperative with examination at this time. MDM: Patient seen and examined for rapid initial assessment. Vital signs reviewed. A comprehensive ED assessment and evaluation of the patient, analysis of test results and completion of the medical decision making process will be conducted by additional ED providers. *Note is created using voice recognition software and may contain spelling, syntax or grammatical errors. TRAVEL OUTSIDE OF THE [place] IN LAST 30 DAYS: No - Related Data Allergies/Adverse Reactions: No Known Allergies Allergy (Verified 01/09/18 10:10) Past Medical History Renal/ Medical History: Reports: Hx Kidney Stones. Denies: Hx Peritoneal Dialysis GI Medical History: Reports: Hx Gastroesophageal Reflux Disease Past Surgical History: Reports: Hx Kidney (Renal Surgery) - stent placement - Immunizations Immunizations up to date: Yes Hx Diphtheria, Pertussis, Tetanus Vaccination: Yes
[2018-07-31] MEDS ORDERED: ONDANSETRON HCL INJ/PF 4 MG/2 ML SDV IV ONE (19:57)
[2018-07-31 20:07] VITALS: BP 121/69
[2018-07-31 21:23] LABS: ABSOLUTE BASOPHILS # (AUTO) 0.1 10^3/uL (0.0-0.2); ABSOLUTE LYMPHOCYTES (AUTO) 0.8 10^3/uL (0.5-4.7); ABSOLUTE NEUT (AUTO) 7.1 10^3/uL (1.7-8.2); BASOPHILS % (AUTO) 0.6 % (0-2); EOSINOPHILS % (AUTO) 0.1 % (0-6); HEMATOCRIT 43.5 % (37.9-51.0); HEMOGLOBIN 15.2 g/dL (13.5-17.0); LYMPHOCYTES % (AUTO) 8.5 % (13-45); MEAN CORPUSCULAR HEMOGLOBIN 31.4 pg (27.0-33.4); MEAN CORPUSCULAR VOLUME 90 fl (80-97); MONOCYTES % (AUTO) 11.7 % (3-13); PLATELET COUNT 202 10^3/uL (150-450); RED BLOOD COUNT 4.84 10^6/uL (4.35-5.55); SEGMENTED NEUTROPHILS % (AUTO) 79.1 % (42-78); TOTAL CELLS COUNTED % (AUTO) 100 %; WHITE BLOOD COUNT 8.9 10^3/uL (4.0-10.5)
[2018-07-31 21:33] LABS: ALANINE AMINOTRANSFERASE 23 U/L (21-72); ALBUMIN 4.3 g/dL (3.5-5.0); ALCOHOL < 10 mg/dL (NONE DETECTED); ALKALINE PHOSPHATASE 97 U/L (38-126); ANION GAP 12 (5-19); ASPARTATE AMINO TRANSFERASE 26 U/L (17-59); BILIRUBIN,DIRECT 0.3 mg/dL (0.0-0.4); BILIRUBIN,TOTAL 0.6 mg/dL (0.2-1.3); BLOOD UREA NITROGEN 20 mg/dL (7-20); CALCIUM 10.2 mg/dL (8.4-10.2); CARBON DIOXIDE 21 mmol/L (22-30); CHLORIDE 101 mmol/L (98-107); GLUCOSE 100 mg/dL (75-110); LIPASE 56.2 U/L (23-300); POTASSIUM 3.8 mmol/L (3.6-5.0); SODIUM 133.9 mmol/L (137-145); TOTAL PROTEIN 7.1 g/dL (6.3-8.2)
== END 2018-07-31 22:26 | disposition left against medical advice (07) ==
LOC: ER 19:17
DX: Z53.21 Procedure and treatment not carried out due to patient leaving prior to being seen by health care provider (principal); R10.9 Unspecified abdominal pain; R11.10 Vomiting, unspecified
CPT/HCPCS: 99284; 96361; 96374; 36415; 80307; 83690; 85025; 80053; J2405; J7030

== ENCOUNTER 2019-11-11 05:12 | Emergency (ER) | payer OTHER ==
[2019-11-11] MEDS ORDERED: FENTANYL CITRATE INJ/PF 100 MCG/2 ML AMPUL IV ONE (05:40)
[2019-11-11] MEDS ORDERED: ONDANSETRON HCL INJ/PF 4 MG/2 ML SDV IV ONE (05:44)
[2019-11-11 05:54] LABS: ABSOLUTE BASOPHILS # (AUTO) 0.1 10^3/uL (0.0-0.2); ABSOLUTE EOSINOPHILS # (AUTO) 0.3 10^3/uL (0.0-0.6); ABSOLUTE LYMPHOCYTES (AUTO) 1.7 10^3/uL (0.5-4.7); ABSOLUTE MONOCYTES (AUTO) 0.6 10^3/uL (0.1-1.4); ABSOLUTE NEUT (AUTO) 5.6 10^3/uL (1.7-8.2); BASOPHILS % (AUTO) 0.8 % (0-2); EOSINOPHILS % (AUTO) 3.8 % (0-6); HEMATOCRIT 44.3 % (37.9-51.0); HEMOGLOBIN 15.5 g/dL (13.5-17.0); LYMPHOCYTES % (AUTO) 20.8 % (13-45); MEAN CORPUSCULAR HEMOGLOBIN 31.9 pg (27.0-33.4); MEAN CORPUSCULAR VOLUME 91 fl (80-97); MONOCYTES % (AUTO) 6.8 % (3-13); PLATELET COUNT 212 10^3/uL (150-450); RED BLOOD COUNT 4.86 10^6/uL (4.35-5.55); RED CELL DISTRIBUTION WIDTH 13.9 % (11.5-14.0); SEGMENTED NEUTROPHILS % (AUTO) 67.8 % (42-78); TOTAL CELLS COUNTED % (AUTO) 100 %; WHITE BLOOD COUNT 8.3 10^3/uL (4.0-10.5)
--- NOTE | 2019-11-11 06:02 | ER Document Report ---
ED General - General Chief Complaint: Abdominal Pain Stated Complaint: SEVERE ABDOMINAL PAIN Time Seen by Provider: 11/11/19 05:39 Primary Care Provider: DEBORAH DALEY MD [NO LOCAL MD] - Follow up in 3-5 days RAMOS LIVE MD [NO LOCAL MD] - Follow up in 3-5 days (Whoever can see you first whether it is the [place] office and Dr. daley, the [place] office and Dr. Live) Notes: 51-year-old male presents with severe low abdominal pain left greater than right, with nausea vomiting and decreased stool output, which is been going on now for 4 to 5 days. Nurse called me into the room because the patient looks miserable. Is been waiting for 4 hours prior to my evaluation. He says he has a history of kidney stones with obstruction resulting likely "blockage" versus ileus from narcotics. He has no urinary symptoms and no fever currently. He has been nauseous and vomiting. TRAVEL OUTSIDE OF THE [place] IN LAST 30 DAYS: No - Related Data Allergies/Adverse Reactions: No Known Allergies Allergy (Verified 01/09/18 10:10) Past Medical History - Social History Smoking Status: Current Every Day Smoker Chew tobacco use (# tins/day): No Smoking Education Provided: Yes - The patient ED visit today was directly rela monique to their abuse of tobacco. Frequency of alcohol use: None Drug Abuse: None Family History: Reviewed & Not Pertinent, DM Patient has homicidal ideation: No Renal/ Medical History: Reports: Hx Kidney Stones. Denies: Hx Peritoneal Dialysis GI Medical History: Reports: Hx Gastroesophageal Reflux Disease Past Surgical History: Reports: Hx Kidney (Renal Surgery) - stent placement - Immunizations Immunizations up to date: Yes Hx Diphtheria, Pertussis, Tetanus Vaccination: Yes Review of Systems - Review of Systems Notes: REVIEW OF SYSTEMS GEN: Denies fever, chills, weight loss ENT: Denies sore throat, nasal discharge, ear pain EYES: Denies blurry vision, eye pain, discharge CV: Denies chest pain, palpitations, edema RESP: Denies cough, shortness of breath, wheezing GI: hPI SKIN: Denies rash, skin lesions LYMPH: Denies swollen glands/lymph nodes NEURO: Denies headache, focal weakness or numbness, dizziness PSYCH: Denies depression, suicidal or homicidal ideation PHYSICAL EXAMINATION General: Clutching abdomen in obvious distress Head: Atraumatic, normocephalic ENT: Mouth normal, oropharynx moist, no exudates or tonsillar enlargement Eyes: Conjunctiva normal, pupils equal, lids normal Neck: No JVD, supple, no guarding CVS: Normal rate, regular rhythm, no murmurs Resp: No resp distress, equal and normal breath sounds bilaterally GI: Nondistended, soft, ovoid, very mild left lower quadrant tenderness to palpation, no rebound or guarding Ext: No deformities, no edema, normal range of motion in upper and lower ext Back: No CVA or midline TTP Skin: No rash, warm Lymphatic: No lymphadeopathy noted Neuro: Awake, alert. Face symmetric. GCS 15. Physical Exam - Vital signs Vitals: Temp Pulse BP Pulse Ox 97.8 F 65 135/92 H 100 11/11/19 05:23 11/11/19 05:23 11/11/19 05:23 11/11/19 05:23 Course - Re-evaluation Re-evalutation: 11/11/19 06:02 59-year-old male smoker with severe abdominal pain. He has a history of both what sounds like an ileus and kidney stones but vascular etiologies are also on the table given his smoking history Go to give fentanyl, check labs and get a CT. Will do bedside ultrasound for AAA/free fluid 11/11/19 15:12 Large stone with left hydro-, creatinine stable urine not infected Pain relief with single dose of fentanyl refused further meds. Discussed with Dr. Live from urology, who agrees the patient to follow-up as an outpatient. Given Motrin Percocet Zofran and Flomax and invited to follow-up either with [facility] who has an office in [place] or Dr. Steve Lewis. I have discussed with the patient there likely diagnosis, aftercare plan, follow-up plans and my usual and customary return precautions. They verbalized understanding of this. - Vital Signs Vital signs: Temp Pulse Resp BP Pulse Ox 97.5 F 50 L 18 126/82 H 100 11/11/19 08:35 11/11/19 08:35 11/11/19 08:35 11/11/19 08:35 11/11/19 08:35 - Laboratory Result Diagrams: 11/11/19 05:37 11/11/19 05:37 Laboratory results interpreted by me: 11/11/19 11/11/19 05:37 07:12 Anion Gap 4 L Urine Protein 100 H Urine Blood LARGE H Procedures - Ultrasound/Bedside Ultrasound/Bedside Ultrasound: Normal - Neck: Normal caliber no flaps all the way down to the bifurcation Kidneys limited: Right kidney normal left kidney moderatesevere hydronephrosis no perinephric fluid or stranding Discharge - Discharge Clinical Impression: Renal colic on left side Condition: Good Disposition: HOME, SELF-CARE Instructions: Kidney Stone ([facility]) Prescriptions: Tamsulosin HCl [Flomax 0.4 mg Cap.sr] 0.4 mg PO DAILY #7 cap.sr.24h Ibuprofen [Ibu] 400 mg PO Q6 #20 tablet Oxycodone HCl/Acetaminophen [Percocet 5-325 mg Tablet] 1 - 2 tab PO Q4H PRN #25 tablet PRN Reason: Ondansetron [Zofran Odt 4 mg Tablet] 1 - 2 tab PO Q4H PRN #15 tab.rapdis PRN Reason: For Nausea/Vomiting Referrals: DEBORAH DALEY MD [NO LOCAL MD] - Follow up in 3-5 days ARMOS LIVE MD [NO LOCAL MD] - Follow up in 3-5 days (Whoever can see you first whether it is the [place] office and Dr. daley, the [place] office and Dr. Live)
[2019-11-11 06:03] LABS: ALBUMIN 4.1 g/dL (3.5-5.0); ALKALINE PHOSPHATASE 100 U/L (38-126); ASPARTATE AMINO TRANSFERASE 22 U/L (17-59); BILIRUBIN,TOTAL 0.3 mg/dL (0.2-1.3); BLOOD UREA NITROGEN 17 mg/dL (7-20); CALCIUM 9.5 mg/dL (8.4-10.2); CARBON DIOXIDE 29 mmol/L (22-30); CHLORIDE 107 mmol/L (98-107); GLUCOSE 109 mg/dL (75-110); POTASSIUM 4.2 mmol/L (3.6-5.0); TOTAL PROTEIN 6.7 g/dL (6.3-8.2)
[2019-11-11 06:12] LABS: ANION GAP 4 (5-19)
[2019-11-11] MEDS ORDERED: KETOROLAC TROMETHAMINE INJ/PF 30 MG/1 ML SDV IV ONE (06:31)
[2019-11-11] MEDS ORDERED: HYDROMORPHONE HCL INJ/PF 2 MG/ML AMPULE IV ONE (07:10)
--- NOTE | 2019-11-11 07:16 | RADIOLOGY REPORT (SQ) ---
CT ABDOMEN AND PELVIS WITHOUT INTRAVENOUS CONTRAST: 11/11/2019 6:12 AM CDT HISTORY: 59-year old with concern for hydronephrosis, flank pain. COMPARISON: None available TECHNIQUE: Axial contiguous images were obtained from the lung bases to the proximal femurs without intravenous contrast administered. Sagittal and coronal reconstructions were also obtained and reviewed. This exam was performed according to our departmental dose-optimization program, which includes automated exposure control, adjustment of the mA and/or KV according to the patient's size and/or use of iterative reconstruction technique. FINDINGS: The lung bases appear clear without evidence of a focal consolidative airspace opacity or effusions. Moderate centrilobular emphysematous changes are seen within the lungs. Evaluation of the solid organs is limited by the lack of intravenous contrast. The visualized hepatic parenchyma is unremarkable. The gallbladder demonstrates no evidence of calcified gallstones. The spleen and pancreas are normal in contour. The bilateral adrenal glands appear unremarkable. There is moderate to severe left hydroureteronephrosis secondary to an eight mm calculus at the mid to distal left ureter. There are bilateral nonobstructive renal calculi measuring up to 4 to 5 mm on the right and 6 to 7 mm on the left side. The urinary bladder is mildly distended, and appears grossly unremarkable. The stomach is mildly distended. The small bowel loops appear unremarkable. No pericolonic inflammatory stranding is seen. The appendix appears unremarkable. There is no evidence of pneumoperitoneum or free fluid. The aorta and IVC appear normal in size. No significantly enlarged lymph nodes are seen in the abdomen or pelvis. Review of the bone show no evidence of any suspicious lytic or blastic lesions. IMPRESSION: There is moderate to severe left hydroureteronephrosis secondary to an eight mm calculus at the mid to distal left ureter. There are bilateral nonobstructive additional renal calculi may represent evidence of medullary nephrocalcinosis.
[2019-11-11 08:24] LABS: APPEARANCE,URINE TURBID; BILIRUBIN,URINE NEGATIVE (NEGATIVE); COLOR,URINE YELLOW; GLUCOSE, URINE NEGATIVE (NEGATIVE); KETONES,URINE NEGATIVE (NEGATIVE); LEUKOCYTE ESTERASE,URINE NEGATIVE (NEGATIVE); NITRITE,URINE NEGATIVE (NEGATIVE); PROTEIN,URINE 100 mg/dL (NEGATIVE); URINE SPECIFIC GRAVITY 1.018; UROBILINOGEN,URINE NEGATIVE mg/dL (<2.0)
[2019-11-11 08:34] LABS: ADD MANUAL MICROSCOPIC YES; RBC,URINE 50-100 /HPF
[2019-11-11 08:35] LABS: AMORPHOUS SEDIMENT,UR 2+; BACTERIA,URINE TRACE /HPF
[2019-11-11 08:36] VITALS: BP 126/82
== END 2019-11-11 08:36 | disposition home or self-care (01) ==
LOC: ER 05:12
DX: N23 Unspecified renal colic (principal); R11.2 Nausea with vomiting, unspecified; F17.200 Nicotine dependence, unspecified, uncomplicated; Z87.442 Personal history of urinary calculi
CPT/HCPCS: 99284; 96374; 96375; 36415; 83690; 85025; 80053; 81001; 74176; J3010; J1885; J2405

== ENCOUNTER 2019-12-10 07:40 | Inpatient (IN) | payer OTHER ==
[2019-12-10] MEDS ORDERED: ONDANSETRON HCL INJ/PF 4 MG/2 ML SDV IV ONE ×2 (09:12→11:05)
[2019-12-10 09:18] LABS: ABSOLUTE BASOPHILS # (AUTO) 0.1 10^3/uL (0.0-0.2); ABSOLUTE EOSINOPHILS # (AUTO) 0.3 10^3/uL (0.0-0.6); ABSOLUTE LYMPHOCYTES (AUTO) 1.8 10^3/uL (0.5-4.7); ABSOLUTE MONOCYTES (AUTO) 0.5 10^3/uL (0.1-1.4); ABSOLUTE NEUT (AUTO) 4.4 10^3/uL (1.7-8.2); BASOPHILS % (AUTO) 1.3 % (0-2); EOSINOPHILS % (AUTO) 3.7 % (0-6); LYMPHOCYTES % (AUTO) 25.8 % (13-45); MEAN CORPUSCULAR HEMOGLOBIN 31.1 pg (27.0-33.4); MEAN CORPUSCULAR HGB CONC 34.2 g/dL (32.0-36.0); MEAN CORPUSCULAR VOLUME 91 fl (80-97); MONOCYTES % (AUTO) 6.4 % (3-13); PLATELET COUNT 218 10^3/uL (150-450); RED BLOOD COUNT 4.83 10^6/uL (4.35-5.55); SEGMENTED NEUTROPHILS % (AUTO) 62.8 % (42-78); TOTAL CELLS COUNTED % (AUTO) 100 %; WHITE BLOOD COUNT 7.1 10^3/uL (4.0-10.5)
--- NOTE | 2019-12-10 09:24 | ER Document Report ---
ED General - General Chief Complaint: Constipation Stated Complaint: ABDOMINAL PAIN/POST OP Time Seen by Provider: 12/10/19 08:56 Notes: 59-year-old male with past medical history of chronic smoker, history of kidney stones presenting today after having a left kidney lipsotriphy and removed on Saturday. This was done by Dr. Woodall with [facility] urology. No stent was placed. Patient states that he has not taken any pain medication. He was prescribed tramadol. Patient reports his last true bowel movement was Saturday. States he was straining to use the bathroom and noticed some blood. Since then he has not had his normal bowel movement. States he tried to have a bowel movement today but was only able to have a small bowel movement. He noted no blood. States he has been nauseous. No episodes of vomiting. Has had a decreased appetite. Has only been able to drink flavored water yesterday. He does not have any follow-up scheduled with Dr. Woodall. Does note that he still has blood and pain with urination. He has had no fever. Pain is intermittent. Pain is sharp more located down at his suprapubic region. He does not have any upper abdominal pain. The last time he had a lithotripsy he was also constipated. And had similar symptoms. He denies any fever, chills or additional symptoms at this time. TRAVEL OUTSIDE OF THE [place] IN LAST 30 DAYS: No - Related Data Allergies/Adverse Reactions: No Known Allergies Allergy (Verified 12/10/19 07:47) Past Medical History - Social History Smoking Status: Current Every Day Smoker Chew tobacco use (# tins/day): No Frequency of alcohol use: None Drug Abuse: None Family History: Reviewed & Not Pertinent, DM Patient has homicidal ideation: No Renal/ Medical History: Reports: Hx Kidney Stones. Denies: Hx Peritoneal Dialysis GI Medical History: Reports: Hx Gastroesophageal Reflux Disease Past Surgical History: Reports: Hx Kidney (Renal Surgery) - stent placement - Immunizations Immunizations up to date: Yes Hx Diphtheria, Pertussis, Tetanus Vaccination: Yes Review of Systems - Review of Systems Constitutional: See HPI EENT: No symptoms reported Cardiovascular: No symptoms reported Respiratory: No symptoms reported Gastrointestinal: See HPI Genitourinary: See HPI Male Genitourinary: No symptoms reported Musculoskeletal: No symptoms reported Skin: No symptoms reported Hematologic/Lymphatic: No symptoms reported Neurological/Psychological: No symptoms reported Physical Exam - Vital signs Vitals: Temp Pulse Resp BP Pulse Ox 98.3 F 58 L 18 143/81 H 100 12/10/19 07:45 12/10/19 07:45 12/10/19 07:45 12/10/19 07:45 12/10/19 07:45 Interpretation: Bradycardic. No: Febrile - Notes Notes: Adult General: GENERAL: Alert, interacts well. No acute distress HEAD: Normocephalic, atraumatic EYES: Pupils equal, round and reactive to light. Extraocular movements intact. ENT: Oropharynx unremarkable. Airway patent. Nares patent. NECK: Full range of motion. Supple. Trachea midline. No lymphadenopathy. LUNGS: Clear to auscultation bilaterally, no wheezes, rales, or rhonchi. No respiratory distress. Nontender chest wall. HEART: Regular rate and rhythm. No murmurs, rubs or gallops. ABDOMEN: Soft, tender to palpation left lower quadrant. Bowel sounds in all four quadrants. GENITOURINARY: Deferred EXTREMITIES: Moves all 4 extremities spontaneously. No edema, normal radial and dorsal pedis pulses bilaterally. No cyanosis. BACK: Moves all extremities with full range of motion. NEUROLOGICAL: Alert and oriented x3. Normal speech. Strength 5/ 5 in all extremities. PSYCH: Normal affect, normal mood. SKIN: Warm, dry, normal turgor. No rashes or lesions noted. Course - Re-evaluation Re-evalutation: 12/10/19 09:30 Discussed pain control with the patient. He states that morphine causes him a reaction. Has used fentyl at the last visit and it helped his symptoms. Pain meds ordered, then will do rectal exam. 12/10/19 12:09 Hemoccult negative. I have called Dr. Woodall urologist at [facility]. I was informed that he is in surgery until 1500. I have left my name and number for a call back. 12/10/19 13:23 Called [facility] again. States he is still held over in surgery. Pending call back. 12/10/19 16:39 Provider called me back around 1530. He asked if patient wants to be directly admitted to the hospital or seen first thing in the morning. I have discussed this with the patient who wants to have a direct admit. I informed Dr. Woodall. He states he will make a few calls and call the patient. I was notified by the patient that the nurse at [facility] has sent in a pain prescription for the patient and that Dr. Woodall will see him at 8 am. I am pending confirmation by Dr. Woodall that this is the plan. 12/10/19 17:[address] Woodall back and went into the patients room to discuss the plan. Patient now desires to be transfered. Dr. Woodall states he will make some phone calls. I have called the pipe wrapping machine operator at [facility]. Was told they don't have an extension service advisor hospitalist. I called the Emergency Department for a possible ER to inpatient transfer as the patient is unable to drive to [place]. I was transfered to hospitalist Dr. Canales. I discussed the patient with him. He states he will call the clinical coordinator. I received a call back from the clinical cooridinator Guerda. She states that they have no beds available at this time. They are willing to accept the patient for transfer at this time but are pending a room. I will call the hospitalists here to see if they will admit for pain control until [facility] has availability. 12/10/19 17:[address] Santiago who informs me to call dr. maher. Discussed with Dr. Maher who agrees to accept patient for pain control. I discussed this with the patient. I ordered prn pain medications and prn antiemetics. - Vital Signs Vital signs: Temp Pulse Resp BP Pulse Ox 97.9 F 50 L 16 127/65 H 97 12/10/19 19:42 12/10/19 19:42 12/10/19 19:42 12/10/19 19:42 12/10/19 19:42 - Laboratory Result Diagrams: 12/10/19 08:50 12/10/19 19:36 Laboratory results interpreted by me: 12/10/19 09:09 Urine Protein 100 H Urine Ketones 20 H Urine Blood LARGE H Discharge - Discharge Clinical Impression: Nephrolithiasis Condition: Stable Disposition: ADMITTED INPATIENT Admitting Provider: Brianna (Hospitalist) Unit Admitted: Medical Floor
[2019-12-10 09:25] LABS: APPEARANCE,URINE SLIGHTLY-CLOUDY; BILIRUBIN,URINE NEGATIVE (NEGATIVE); COLOR,URINE YELLOW; GLUCOSE, URINE NEGATIVE (NEGATIVE); KETONES,URINE 20 mg/dL (NEGATIVE); LEUKOCYTE ESTERASE,URINE NEGATIVE (NEGATIVE); NITRITE,URINE NEGATIVE (NEGATIVE); PROTEIN,URINE 100 mg/dL (NEGATIVE); URINE SPECIFIC GRAVITY 1.017; UROBILINOGEN,URINE NEGATIVE mg/dL (<2.0)
[2019-12-10 09:29] LABS: ALBUMIN 4.3 g/dL (3.5-5.0); ALKALINE PHOSPHATASE 98 U/L (38-126); ANION GAP 6 (5-19); ASPARTATE AMINO TRANSFERASE 21 U/L (17-59); BILIRUBIN,DIRECT 0.2 mg/dL (0.0-0.4); BILIRUBIN,TOTAL 0.7 mg/dL (0.2-1.3); BLOOD UREA NITROGEN 17 mg/dL (7-20); CALCIUM 9.2 mg/dL (8.4-10.2); CARBON DIOXIDE 27 mmol/L (22-30); CHLORIDE 106 mmol/L (98-107); GLUCOSE 100 mg/dL (75-110)
[2019-12-10] MEDS ORDERED: FENTANYL CITRATE INJ/PF 100 MCG/2 ML AMPUL IV ONE ×2 (09:29→14:18)
--- NOTE | 2019-12-10 09:42 | RADIOLOGY REPORT (SQ) ---
EXAM DESCRIPTION: KUB/ABDOMEN (SINGLE VIEW) IMAGES COMPLETED DATE/TIME: 12/10/2019 9:24 am REASON FOR STUDY: abdominal pain, constipation COMPARISON: None. NUMBER OF VIEWS: One view. TECHNIQUE: Supine radiographic image of the abdomen acquired. LIMITATIONS: None. FINDINGS: BOWEL GAS PATTERN: Normal bowel gas pattern. No dilated loops. CALCIFICATIONS: Numerous calcifications overlie the left kidney. Possible stone lying adjacent to th e L5 transverse process on the left. SOFT TISSUES: No gross mass or suggestion of organomegaly. HARDWARE: None in the abdomen. BONES: No acute fracture. No worrisome bone lesions. OTHER: No other significant finding. IMPRESSION: 1. Nonspecific gas pattern. 2. Numerous nonobstructing left renal calculi. Possible left ureteral stone lying adjacent to the l eft L5 transverse process. TECHNICAL DOCUMENTATION: JOB ID: [id number] 2010 [employer]- All Rights Reserved Reading location - IP/workstation name: [email or web address]
--- NOTE | 2019-12-10 10:44 | RADIOLOGY REPORT (SQ) ---
EXAM DESCRIPTION: CT ABD/PELVIS WITH IV ONLY IMAGES COMPLETED DATE/TIME: 12/10/2019 10:22 am REASON FOR STUDY: abdominal pain, eval ilius. COMPARISON: 12/15/2016 TECHNIQUE: CT scan of the abdomen and pelvis performed using helical scanning technique with dynamic intravenous contrast injection. No oral contrast. Images reviewed with lung, soft tissue, and bone windows. Reconstructed coronal and sagittal MPR images reviewed. Delayed images for evaluation of the urinary system also acquired. All images stored on PACS. All CT scanners at this facility use dose modulation, iterative reconstruction, and/or weight based d osing when appropriate to reduce radiation dose to as low as reasonably achievable (ALARA). [facility]: Dose Right [facility]: CareDose [facility]: Dose Right [facility]: Teradose 4D [facility]: [employer] CONTRAST TYPE AND DOSE: contrast/concentration: Isovue 350.00 mmol/ml; Total Contrast Delivered: 86. 0 ml; Total Saline Delivered: 69.0 ml RENAL FUNCTION: BUN 17; creatinine 1.02 RADIATION DOSE: CT Rad equipment meets quality standard of care and radiation dose reduction techniq ues were employed. CTDIvol: NaN - NaN mGy. DLP: 0 mGy-cm.. LIMITATIONS: None. FINDINGS: LOWER CHEST: No significant findings. No nodules or infiltrates. LIVER: Normal size. Diminished attenuation consistent with fatty infiltration. A low-attenuation fo cus seen within the left hepatic lobe is unchanged in the study interval, and likely represents a tin y hemangioma or hepatic cyst. SPLEEN: Normal size. No focal lesions. PANCREAS: No masses. No significant calcifications. No adjacent inflammation or peripancreatic fluid collections. Pancreatic duct not dilated. GALLBLADDER: No identified stones by CT criteria. No inflammatory changes to suggest cholecystitis. ADRENAL GLANDS: No significant masses or asymmetry. RIGHT KIDNEY AND URETER: No solid masses. Re- demonstration of few cortical cysts. No significant calcifications. No hydronephrosis or hydroureter. LEFT KIDNEY AND URETER: No solid masses. Nonobstructing nephroliths are seen within the inferior po le collecting system. Mild hydronephrosis and ureterectasis on the basis of 2 distal ureteroliths m easuring 6 x 3 x 3 mm and 4 x 2 x 3 mm. AORTA AND VESSELS: No aneurysm. No dissection. Renal arteries, SMA, celiac without stenosis. RETROPERITONEUM: No retroperitoneal adenopathy, hemorrhage or masses. BOWEL AND PERITONEAL CAVITY: Few air-fluid levels are seen within nondilated loops of small bowel wit hout evidence of obstruction. No masses or inflammatory changes. No free fluid or peritoneal masses. APPENDIX: Not visualized. PELVIS: No mass. No free fluid. An additional calcific density is seen dependently within the bladd er adjacent to the left ureterovesicular junction measuring up to 3 mm in greatest dimension. ABDOMINAL WALL: No masses. No hernias. BONES: Degenerative changes are seen of the hips and spine. OTHER: No other significant finding. IMPRESSION: Left-sided hydronephrosis and ureterectasis on the basis of 2 distal ureteroliths as det danita above. An additional calcific density is seen within the bladder adjacent to the left ureterov esicular junction. Few small bowel air-fluid levels without evidence of obstruction ; cannot exclude a developing enteritis. TECHNICAL DOCUMENTATION: JOB ID: [id number] Quality ID # [id number]: Final reports with documentation of one or more dose reduction techniques (e.g., Au tomated exposure control, adjustment of the mA and/or kV according to patient size, use of iterative reconstruction technique) 2010 [employer]- All Rights Reserved Reading location - IP/workstation name: [email or web address]
[2019-12-10] MEDS ORDERED: NORMAL SALINE 1000 ML 1,000 ML IV ONE ×2 (11:03→18:12)
[2019-12-10] MEDS ORDERED: FENTANYL CITRATE INJ/PF 100 MCG/2 ML AMPUL IV PRN (18:04)
[2019-12-10] MEDS: FENTANYL CITRATE INJ/PF 100 MCG/2 ML AMPUL IV PRN ×2 (18:11→23:18)
[2019-12-10] MEDS ORDERED: ACETAMINOPHEN 325 MG TABLET PO PRN (18:55)
[2019-12-10] MEDS ORDERED: IPRATROPIUM/ALBUTEROL 0.5-2.5 MG/3 ML AMPUL NEB PRN (18:55)
[2019-12-10] MEDS ORDERED: ONDANSETRON HCL INJ/PF 4 MG/2 ML SDV IV PRN (18:55)
[2019-12-10] MEDS ORDERED: ONDANSETRON 4 MG TAB.RAPDIS PO PRN (18:55)
[2019-12-10] MEDS ORDERED: HYDROCORTISONE ACETATE 25 MG SUPP.RECT PR PRN (19:03)
[2019-12-10] MEDS ORDERED: NICOTINE 21 MG/24 HR PATCH.TD24 TD PRN (19:03)
--- NOTE | 2019-12-10 19:09 | PDOC H&P ---
History of Present Illness Admission Date/PCP: 12/10/19 18:37 History of Present Illness: LATRELL MAX is a 59 year old male with past medical history significant for recurrent nephrolithiasis, rectal hemorrhoids, tobacco abuse who presents with a 2-day history of progressive severe left flank pain. Patient had a lithotripsy at his urology office at [facility] on Saturday or 2 stones were reportedly destroyed although the patient states there was a fragment of a stone that was retained as he was informed by his urologist. ED contacted [facility] and they accepted the patient to the hospitalist service under Dr. Canales however they do not have any beds. Patient admitted for pain control until he is transferred hopefully tomorrow. He noted having some bleeding in his urine as well as some rectal bleeding from his known chronic hemorrhoids due to a large hard stool which he relates to using narcotics at home. He is a 1 pack/day current smoker and is not achieving quitting right now. Labs reviewed and stable other than large blood in the UA. Occult blood stool is negative. Past Medical History GI Medical History: Reports: Gastroesophageal Reflux Disease, Other - Hemorrhoids Social History Smoking Status: Current Every Day Smoker Electronic Cigarette use?: No Hx Recreational Drug Use: Yes Drugs: Marijuana - Advance Directive Resuscitation Status: Full Code Surrogate healthcare decision maker:: Ex- Jasmin Garrett Family History Family History: Reviewed & Not Pertinent, DM Parental Family History Reviewed: Yes Children Family History Reviewed: Yes Sibling(s) Family History Reviewed.: Yes Medication/Allergy Home Medications: No Home Medications 12/10/19 Allergies/Adverse Reactions: No Known Allergies Allergy (Verified 12/10/19 07:47) Review of Systems All systems: reviewed and no additional remarkable complaints except as stated - Review of systems per HPI, otherwise negative Physical Exam Vital Signs: Temp Pulse Resp BP Pulse Ox 98.0 F 55 L 22 H 142/86 H 100 12/10/19 16:43 12/10/19 16:43 12/10/19 16:43 12/10/19 16:43 12/10/19 16:43 Intake & Output 12/09/19 12/10/19 12/11/19 06:59 06:59 06:59 Intake Total 1000 Balance 1000 Weight 75.3 kg General appearance: PRESENT: mild distress, well-developed, well-nourished Head exam: PRESENT: atraumatic, normocephalic Eye exam: PRESENT: conjunctiva pink Mouth exam: PRESENT: moist Respiratory exam: PRESENT: clear to auscultation lynn. ABSENT: rales, rhonchi, wheezes Cardiovascular exam: PRESENT: RRR. ABSENT: diastolic murmur, rubs, systolic murmur GI/Abdominal exam: PRESENT: normal bowel sounds, soft, tenderness - Mild deep tenderness in bladder/groin region. ABSENT: distended, guarding, mass, organolmegaly, rebound Rectal exam: PRESENT: deferred Neurological exam: PRESENT: alert, awake, oriented to person, oriented to place, oriented to time, oriented to situation Psychiatric exam: PRESENT: appropriate affect, normal mood Skin exam: PRESENT: dry, intact, warm Results Laboratory Results: 12/10/19 08:50 12/10/19 08:50 12/10/19 12/10/19 12/10/19 08:50 08:50 09:09 WBC 7.1 RBC 4.83 Hgb 15.0 Hct 44.0 MCV 91 MCH 31.1 MCHC 34.2 RDW 14.0 Plt Count 218 Seg Neutrophils % 62.8 Sodium 138.5 Potassium 4.0 Chloride 106 Carbon Dioxide 27 Anion Gap 6 BUN 17 Creatinine 1.02 Est GFR ( Amer) > 60 Glucose 100 Calcium 9.2 Total Bilirubin 0.7 AST 21 Alkaline Phosphatase 98 Total Protein 7.0 Albumin 4.3 Urine Color YELLOW Urine Appearance SLIGHTLY-CLOUDY Urine pH 7.0 Ur Specific Lund 1.017 Urine Protein 100 H Urine Glucose (UA) NEGATIVE Urine Ketones 20 H Urine Blood LARGE H Urine Nitrite NEGATIVE Ur Leukocyte Esterase NEGATIVE Urine WBC (Auto) 28 Urine RBC (Auto) >182 Impressions: KUB X-Ray 12/10/19 09:12 IMPRESSION: 1. Nonspecific gas pattern. 2. Numerous nonobstructing left renal calculi. Possible left ureteral stone lying adjacent to the left L5 transverse process. Abdomen/Pelvis CT 12/10/19 09:18 IMPRESSION: Left-sided hydronephrosis and ureterectasis on the basis of 2 distal ureteroliths as detailed above. An additional calcific density is seen within the bladder adjacent to the left ureterovesicular junction. Few small bowel air-fluid levels without evidence of obstruction ; cannot exclude a developing enteritis. Assessment and Plan - Diagnosis (1) Nephrolithiasis Is this a current diagnosis for this admission?: Yes Plan: Had lithotripsy 3 days prior to admission on Saturday Accepted at [facility] by hospitalist service and urology agreed to consult, await bed availability Pain management with IV narcotics Antiemetics CT done here (2) Bleeding hemorrhoids Is this a current diagnosis for this admission?: Yes Plan: Due to severe constipation from using narcotics at home Bowel regimen Anusol (3) Hematuria Is this a current diagnosis for this admission?: Yes Plan: Due to nephrolithiasis as above Hemoglobin stable Trend CBC Hold anticoagulants (4) Intractable pain Is this a current diagnosis for this admission?: Yes (5) Flank pain Is this a current diagnosis for this admission?: Yes (6) History of lithotripsy Is this a current diagnosis for this admission?: Yes (7) Tobacco abuse Is this a current diagnosis for this admission?: Yes Plan: Not interested in quitting counseled on cessation - Time Time Spent with patient: 35 or more minutes Smoking Cessation Education: 3 to 10 minutes Medications reviewed and adjusted accordingly: Yes Anticipated Discharge Disposition: Tertiary Anticipated Discharge Timeframe: within 24 hours - Inpatient Certification Based on my medical assessment, after consideration of the patient's comorbidities, presenting symptoms, or acuity I expect that the services needed warrant INPATIENT care.: Yes I certify that my determination is in accordance with my understanding of Medicare's requirements for reasonable and necessary INPATIENT services [42 CFR 412.3e].: Yes Medical Necessity: Significant Comorbidiites Make Outpatient Treatment Too Risky, Need Close Monitoring Due to Risk of Patient Decompensation, Need for Pain Control, Risk of Complication if Not Cared For in Hospital, Risk of Diagnosis Which Will Require Inpatient Eval/Care/Monitoring
--- NOTE | 2019-12-10 19:09 | ADVANCED CARE ---
- Diagnosis (1) Nephrolithiasis Diagnosis Current: Yes (2) Bleeding hemorrhoids Diagnosis Current: Yes (3) Hematuria Diagnosis Current: Yes (4) Intractable pain Diagnosis Current: Yes (5) Flank pain Diagnosis Current: Yes (6) History of lithotripsy Diagnosis Current: Yes (7) Tobacco abuse Diagnosis Current: Yes Attendance: Patient Resuscitation Status: Full Code Discussion: All aspects of code status discussed with patient/POA including cardioversion, chest compressions, and intubation and the patient/POA indicated they wish to be full code MPOA is designated as: Ex- Sahra Garrett Time Spent: Greater than 16 minutes
[2019-12-10] MEDS: DOCUSATE SODIUM 100 MG CAPSULE PO SCH (19:33)
[2019-12-10 20:00] LABS: BLOOD UREA NITROGEN 16 mg/dL (7-20); CALCIUM 8.5 mg/dL (8.4-10.2); CARBON DIOXIDE 25 mmol/L (22-30); CHLORIDE 109 mmol/L (98-107); GLUCOSE 108 mg/dL (75-110); POTASSIUM 4.1 mmol/L (3.6-5.0)
[2019-12-10 20:11] LABS: ANION GAP 3 (5-19)
[2019-12-10] MEDS: RINGERS SOLUTION,LACTATED 1,000 ML IV PRN (20:27)
[2019-12-10] MEDS: ONDANSETRON HCL INJ/PF 4 MG/2 ML SDV IV PRN (23:17)
[2019-12-11] MEDS: FENTANYL CITRATE INJ/PF 100 MCG/2 ML AMPUL IV PRN ×6 (02:41→17:23)
[2019-12-11] MEDS: ONDANSETRON HCL INJ/PF 4 MG/2 ML SDV IV PRN (05:51)
[2019-12-11 06:45] LABS: ABSOLUTE EOSINOPHILS # (AUTO) 0.3 10^3/uL (0.0-0.6); ABSOLUTE LYMPHOCYTES (AUTO) 2.1 10^3/uL (0.5-4.7); ABSOLUTE MONOCYTES (AUTO) 0.6 10^3/uL (0.1-1.4); ABSOLUTE NEUT (AUTO) 4.2 10^3/uL (1.7-8.2); BASOPHILS % (AUTO) 0.5 % (0-2); EOSINOPHILS % (AUTO) 4.3 % (0-6); HEMATOCRIT 39.4 % (37.9-51.0); HEMOGLOBIN 13.7 g/dL (13.5-17.0); LYMPHOCYTES % (AUTO) 28.7 % (13-45); MEAN CORPUSCULAR HEMOGLOBIN 31.3 pg (27.0-33.4); MEAN CORPUSCULAR HGB CONC 34.9 g/dL (32.0-36.0); MEAN CORPUSCULAR VOLUME 90 fl (80-97); MONOCYTES % (AUTO) 7.8 % (3-13); PLATELET COUNT 181 10^3/uL (150-450); RED BLOOD COUNT 4.39 10^6/uL (4.35-5.55); RED CELL DISTRIBUTION WIDTH 13.9 % (11.5-14.0); SEGMENTED NEUTROPHILS % (AUTO) 58.7 % (42-78); TOTAL CELLS COUNTED % (AUTO) 100 %; WHITE BLOOD COUNT 7.2 10^3/uL (4.0-10.5)
[2019-12-11 07:15] LABS: PHOSPHORUS 2.7 mg/dL (2.5-4.5)
[2019-12-11] MEDS: RINGERS SOLUTION,LACTATED 1,000 ML IV PRN ×2 (09:59→17:27)
[2019-12-11] MEDS: DOCUSATE SODIUM 100 MG CAPSULE PO SCH ×3 (10:00→17:23)
[2019-12-11] MEDS ORDERED: FENTANYL CITRATE INJ/PF 100 MCG/2 ML AMPUL IV PRN ×2 (15:48→15:49)
[2019-12-11 16:02] VITALS: BP 154/87
--- NOTE | 2019-12-11 16:11 | PDOC TRANSFER SUMMARY ---
General Admission Date/PCP: 12/10/19 18:37 Resuscitation Status: Full Code - Transfer Diagnosis (1) Nephrolithiasis Is this a current diagnosis for this admission?: Yes (2) Bleeding hemorrhoids Is this a current diagnosis for this admission?: Yes (3) Hematuria Is this a current diagnosis for this admission?: Yes (4) Intractable pain Is this a current diagnosis for this admission?: Yes (5) Flank pain Is this a current diagnosis for this admission?: Yes (6) History of lithotripsy Is this a current diagnosis for this admission?: Yes (7) Tobacco abuse Is this a current diagnosis for this admission?: Yes - Transfer Medications Home Medications: No Home Medications 12/10/19 Transfer Medications: Current Medications Acetaminophen (Tylenol 325 Mg Tablet) 650 mg PO Q4HP PRN PRN Reason: fever or pain Stop: 01/09/20 18:54 Albuterol/Ipratropium (Duoneb 3 Ml Ampul) 3 ml NEB RTQ2HP PRN PRN Reason: SHORTNESS OF BREATH Stop: 01/09/20 18:54 Docusate Sodium (Colace 100 Mg Capsule) 100 mg PO BID LOTTIE Stop: 01/09/20 19:29 Last Admin: 12/11/19 10:04 Dose: Not Given Documented by: Fentanyl Citrate (Sublimaze Inj/Pf 100 Mcg/2 Ml Ampule) 100 mcg IV Q1HP PRN PRN Reason: PAIN SCALE PER MD Stop: 12/17/19 16:20 Last Admin: 12/11/19 14:15 Dose: 100 mcg Documented by: Fentanyl Citrate (Sublimaze Inj/Pf 100 Mcg/2 Ml Ampule) 50 mcg IV Q1HP PRN PRN Reason: PAIN SCALE PER MD Stop: 12/17/19 18:03 Last Admin: 12/11/19 10:53 Dose: 50 mcg Documented by: Fentanyl Citrate (Sublimaze Inj/Pf 100 Mcg/2 Ml Ampule) 50 mcg IV Q1HP PRN PRN Reason: FOR PAIN SCALE 1-3 Stop: 12/18/19 15:47 Fentanyl Citrate (Sublimaze Inj/Pf 100 Mcg/2 Ml Ampule) 100 mcg IV Q1HP PRN PRN Reason: FOR PAIN SCALE 4-5 Stop: 12/18/19 15:48 Hydrocortisone Acetate (Anusol Hc 25 Mg Supp.Rect) 25 mg VA BIDP PRN PRN Reason: HEMORRHOIDS Stop: 01/09/20 19:02 Last Admin: 12/11/19 14:19 Dose: 25 mg Documented by: Lactated Ringer's (Lactated Ringers 1000 Ml Iv Soln) 1,000 mls @ 100 mls/hr IV CONTINUOUS PRN PRN Reason: THIS MED IS NOT "PRN" Stop: 01/09/20 18:54 Last Admin: 12/11/19 09:59 Dose: 100 mls/hr Documented by: Nicotine (Nicoderm 21 Mg/24 Hr Transderm Patch) 1 each TD DAILYP PRN PRN Reason: WITHDRAWAL SYMPTOMS Stop: 01/09/20 19:02 Ondansetron HCl (Zofran Inj/Pf 4 Mg/2 Ml Sdv) 4 mg IV PRN PRN PRN Reason: FOR NAUSEA/VOMITING Stop: 01/09/20 18:04 Last Admin: 12/11/19 05:51 Dose: 4 mg Documented by: Ondansetron HCl (Zofran Odt 4 Mg Tablet) 4 mg PO Q4HP PRN PRN Reason: FOR NAUSEA/VOMITING Stop: 01/09/20 18:54 Ondansetron HCl (Zofran Inj/Pf 4 Mg/2 Ml Sdv) 4 mg IV Q4HP PRN PRN Reason: FOR NAUSEA/VOMITING Stop: 01/09/20 18:54 - Allergies Allergies/Adverse Reactions: No Known Allergies Allergy (Verified 12/10/19 07:47) - Diet/Activity Discharge Diet: As Tolerated Discharge Activity: Balance Activity w/Rest, Bedrest Hospital Course Hospital Course: LATRELL MAX is a 59 year old male with past medical history significant for recurrent nephrolithiasis, rectal hemorrhoids, tobacco abuse who presents with a 2-day history of progressive severe left flank pain. Patient had a lithotripsy at his urology office at [facility] on Saturday or 2 stones were reportedly destroyed although the patient states there was a fragment of a stone that was retained as he was informed by his urologist. ED contacted [facility] and they accepted the patient to the hospitalist service under Dr. Canales however they do not have any beds. Patient admitted for pain control until he is transferred hopefully tomorrow. He noted having some bleeding in his urine as well as some rectal bleeding from his known chronic hemorrhoids due to a large hard stool which he relates to using narcotics at home. He is a 1 pack/day current smoker and is not achieving quitting right now. Labs reviewed and stable other than large blood in the UA. Occult blood stool is negative. Patient admitted for better pain management while he is awaiting transfer to [facility] for urologic evaluation and likely surgical procedure. Patient was given IV fentanyl which was effective for his previous admission for nephrolithiasis. Patient's urine became less bloody during this admission and his pain was a bit more controlled intermittently. He did begin passing some intermittent blood clots in his urine which caused his pain to wax and wane. H emoglobin has been stable. Blood pressure mildly elevated though this is most likely due to his severe pain. Patient did eventually get a bed assignment at [facility] he was transferred in stable condition. Accepting hospitalist physician is Dr. Canales. Please notify him when the patient arrives. Physical Exam Vital Signs: Temp Pulse Resp BP Pulse Ox 98.2 F 51 L 12 154/87 H 100 12/11/19 15:42 12/11/19 15:42 12/11/19 15:42 12/11/19 15:42 12/11/19 15:42 Intake & Output 12/10/19 12/11/19 12/12/19 06:59 06:59 06:59 Intake Total 3000 480 Output Total 325 Balance 3000 155 Weight 75.3 kg General appearance: PRESENT: cooperative, mild distress, well-developed, well- nourished Head exam: PRESENT: atraumatic, normocephalic Eye exam: PRESENT: conjunctiva pink Mouth exam: PRESENT: moist Respiratory exam: PRESENT: clear to auscultation lynn. ABSENT: rales, rhonchi, wheezes Cardiovascular exam: PRESENT: RRR. ABSENT: diastolic murmur, rubs, systolic murmur GI/Abdominal exam: PRESENT: normal bowel sounds, soft, tenderness - Very minimal tenderness in lower abdomen suprapubic region. ABSENT: distended, guarding, mass, organolmegaly, rebound Rectal exam: PRESENT: deferred Neurological exam: PRESENT: alert, awake, oriented to person, oriented to place, oriented to time, oriented to situation Psychiatric exam: PRESENT: appropriate affect, normal mood Skin exam: PRESENT: dry, intact, warm Results Laboratory Results: 12/11/19 06:21 12/10/19 19:36 12/10/19 12/11/19 12/11/19 19:36 06:21 06:21 WBC 7.2 RBC 4.39 Hgb 13.7 Hct 39.4 MCV 90 MCH 31.3 MCHC 34.9 RDW 13.9 Plt Count 181 Seg Neutrophils % 58.7 Sodium 137.0 Potassium 4.1 Chloride 109 H Carbon Dioxide 25 Anion Gap 3 L BUN 16 Creatinine 0.82 Est GFR ( Amer) > 60 Glucose 108 Calcium 8.5 Phosphorus 2.7 Magnesium 1.6 Impressions: KUB X-Ray 12/10/19 09:12 IMPRESSION: 1. Nonspecific gas pattern. 2. Numerous nonobstructing left renal calculi. Possible left ureteral stone lying adjacent to the left L5 transverse process. Abdomen/Pelvis CT 12/10/19 09:18 IMPRESSION: Left-sided hydronephrosis and ureterectasis on the basis of 2 distal ureteroliths as detailed above. An additional calcific density is seen within the bladder adjacent to the left ureterovesicular junction. Few small bowel air-fluid levels without evidence of obstruction ; cannot exclude a developing enteritis. Plan Time Spent: Greater than 30 Minutes
== END 2019-12-11 17:49 | disposition short-term general hospital (02) | DRG 694 ==
LOC: ER 07:40 → EH 18:37 → 4N 22:58
PROVIDERS: ADMIT Internal Medicine; ATTEND Internal Medicine
DX: N20.0 Calculus of kidney (principal); F17.210 Nicotine dependence, cigarettes, uncomplicated; K64.9 Unspecified hemorrhoids; K21.9 Gastro-esophageal reflux disease without esophagitis; K59.03 Drug induced constipation; T40.605A Adverse effect of unspecified narcotics, initial encounter; Z98.890 Other specified postprocedural states
CPT/HCPCS: 36415; 74018; 74177; 80053; 81001; 82270; 83735; 84100; 85025; 96361; 96374; 96375; 96376; 99285; J2405; J3010; J3490; J7030; J7120